=== PATIENT | male | born 1960 | race Caucasian/White ===

== ENCOUNTER 2021-11-08 09:29 | Emergency (ER) | payer OTHER ==
--- NOTE | 2021-11-08 11:11 | EDM.PDOC ---
ED HPI GENERAL MEDICAL PROBLEM - General Chief Complaint: Respiratory Problem Stated Complaint: COUGH, FEVER, NAUSEA,SOB Time Seen by Provider: 11/08/21 10:30 Source of Information: Reports: Patient, Family History Limitations: Reports: No Limitations - History of Present Illness INITIAL COMMENTS - FREE TEXT/NARRATIVE: 61-year-old male with Covid-like symptoms for the past 7 to 9 days, his is also with him to be tested. Neither have been vaccinated. Intermittent fevers, headaches, generalized body aches and his main complaint is weakness. He also has significant nausea when he tries to eat and a decreased appetite. He is willing to consider monoclonal antibody therapy if he is positive. He is mildly tachycardic but O2 saturations are normal. Onset: Gradual Duration: Day(s): (9 days of symptoms) Associated Symptoms: Reports: Cough, Fever/Chills, Malaise, Nausea/Vomiting, Shortness of Breath, Weakness - Related Data Allergies Allergy/AdvReac Type Severity Reaction Status Date / Time No Known Allergies Allergy Verified 11/08/21 10:05 Home Meds: Home Meds lisinopriL [Lisinopril] 20 mg PO DAILY 11/08/21 [History] Social & Family History - Tobacco Use Tobacco Use Status *Q: Never Tobacco User - Recreational Drug Use Recreational Drug Use: No ED ROS GENERAL - Review of Systems Review Of Systems: See Below Constitutional: Reports: Fever, Chills, Malaise, Decreased Appetite HEENT: Denies: Throat Pain Respiratory: Reports: Shortness of Breath, Wheezing, Cough Cardiovascular: Denies: Chest Pain GI/Abdominal: Reports: Nausea, Vomiting Musculoskeletal: Reports: Muscle Pain (Generalized body aches are persistent) Skin: Reports: Pallor Neurological: Reports: Dizziness, Weakness ED EXAM, GENERAL - Physical Exam Exam: See Below Exam Limited By: No Limitations General Appearance: Alert, No Apparent Distress (Looks uncomfortable but not distressed) Eye Exam: Bilateral Eye: Normal Inspection (Good moisture, no jaundice) Head: Atraumatic Respiratory/Chest: No Respiratory Distress, Wheezing (Diffuse intermittent expiratory wheezes with a few rhonchi bilaterally, underlying good air movement) Cardiovascular: Regular Rate, Rhythm. No: Tachycardia GI/Abdominal: Normal Bowel Sounds Extremities: Normal Inspection. No: Pedal Edema Neurological: Alert, Oriented, No Motor/Sensory Deficits Psychiatric: Flat Affect Skin Exam: Warm, Dry Course - Vital Signs Last Recorded V/S: Last Vital Signs Temp 98.7 F 11/08/21 10:03 Pulse 69 11/08/21 10:03 Resp 18 11/08/21 10:03 BP 139/78 11/08/21 10:03 Pulse Ox 98 11/08/21 10:03 - Orders/Labs/Meds Labs: Laboratory Tests 11/08/21 Range/Units 10:52 SARS CoV-2 RNA Rapid RADHA Positive H Meds: Medications Discontinued Medications Generic Name Dose Route Start Last Admin Trade Name Freq PRN Reason Stop Dose Admin Acetaminophen 650 mg 11/08/21 12:00 Acetaminophen 325 Mg Tab PO 11/08/21 20:00 ONETIME PRN HEADACHE,CHILLS Casirivimab 600 mg 11/08/21 12:00 11/08/21 12:23 Casirivimab ([id number]) 1,332 Mg/11.1 Ml Vial SUBCUT 11/08/21 12:01 600 mg ONETIME ONE Administration Diphenhydramine HCl 50 mg 11/08/21 12:00 Diphenhydramine 50 Mg/Ml Sdv IVPUSH 11/08/21 20:00 ONETIME PRN ALLERGIC RXN Epinephrine HCl 0.3 mg 11/08/21 12:00 Epinephrine 1 Mg/Ml Sdv IM 11/08/21 20:00 ONETIME PRN ALLERGIC RXN Famotidine 20 mg 11/08/21 12:00 Famotidine 20 Mg/2 Ml Sdv IV 11/08/21 20:00 ONETIME PRN ALLERGIC RXN Imdevimab 600 mg 11/08/21 12:00 11/08/21 12:23 Imdevimab ([id number]) 1,332 Mg/11.1 Ml Vial SUBCUT 11/08/21 12:01 600 mg ONETIME ONE Administration Methylprednisolone Sodium Succinate 125 mg 11/08/21 12:00 Methylprednisolone Sodium Succinate 125 Mg/2 Ml Sdv IVPUSH 11/08/21 20:00 ONETIME PRN ALLERGIC RXN - Re-Assessments/Exams Free Text/Narrative Re-Assessment/Exam: 11/08/21 11:11 Covid will be confirmed, monoclonal antibody therapy will be offered if Covid is positive. 11/08/21 11:29 Covid was positive, patient was set up for monoclonal antibody therapy. He will be discharged, encouraged to rest, push fluids, and return if worsening. Departure - Departure Time of Disposition: 13:30 Disposition: Home, Self-Care 01 Clinical Impression: COVID-19 - Discharge Information Instructions: COVID-19 Referrals: Chito Ortez [employer] ADMINISTRATOR [Primary Care Provider] - Forms: ED Department Discharge Care Plan Goals: Rest, concentrate on plenty of fluids, and increase activity as tolerated. Return anytime if worsening especially difficulty breathing or you feel you are not getting enough oxygen. Sepsis Event Note (ED) - Evaluation Sepsis Screening Result: No Definite Risk - Focused Exam Vital Signs: Vital Signs Temp Pulse Resp BP Pulse Ox 11/08/21 10:03 98.7 F 69 18 139/78 98
[2021-11-08] MEDS ORDERED: Famotidine 20 MG/2 ML SDV IV PRN (12:00)
[2021-11-08] MEDS ORDERED: methylPREDNISolone Sodium Succinate 125 MG/2 ML SDV IVPUSH PRN (12:00)
[2021-11-08] MEDS ORDERED: Acetaminophen 325 MG Tab PO PRN (12:00)
[2021-11-08] MEDS ORDERED: EPINEPHrine 1 MG/ML SDV IM PRN (12:00)
[2021-11-08] MEDS ORDERED: diphenhydrAMINE 50 MG/ML SDV IVPUSH PRN (12:00)
[2021-11-08] MEDS: [UNRECOGNIZED DRUG - OTHER] SUBCUT ONE (12:23)
[2021-11-08] MEDS: [UNRECOGNIZED DRUG - OTHER] SUBCUT ONE (12:23)
== END 2021-11-08 13:29 | disposition home or self-care (01) ==
LOC: JP.ED 09:29
DX: U07.1 COVID-19 (principal)
CPT/HCPCS: 87635; 99284; M0243; Q0243; U0002

== ENCOUNTER 2023-01-21 07:58 | Day surgery (SDC) | payer OTHER ==
[2023-01-21] MEDS ORDERED: Lactated Ringers 1,000 ML IV SCH (08:30)
[2023-01-21] MEDS ORDERED: Midazolam 1 MG/ML 2 ML SDV ONE (09:12)
[2023-01-21] MEDS ORDERED: fentaNYL 50 MCG/ML SDV ONE (09:12)
[2023-01-21] MEDS ORDERED: Propofol 200 MG/20 ML SDV ONE (09:13)
== END 2023-01-21 11:52 | disposition home or self-care (01) ==
LOC: JP.SDS 07:58
PROVIDERS: ATTEND Student in an Organized Health Care Education/Training Program
DX: Z12.11 Encounter for screening for malignant neoplasm of colon (principal); D12.2 Benign neoplasm of ascending colon; D12.3 Benign neoplasm of transverse colon; K57.30 Diverticulosis of large intestine without perforation or abscess without bleeding; I10 Essential (primary) hypertension; E78.5 Hyperlipidemia, unspecified; E66.9 Obesity, unspecified; Z68.32 Body mass index [BMI] 32.0-32.9, adult
CPT/HCPCS: 45380; J2250; J2704; J3010; J7120